=== PATIENT | male | born 1955 | race Caucasian/White ===

== ENCOUNTER 2018-07-24 15:00 | Emergency (ER) | payer BC, SELFPAY ==
[2018-07-24 15:01] VITALS: BP 158/102; PULSE 80; RESP 16; TEMP 36.6; O2SAT 97; BMI 25.2
--- NOTE | 2018-07-24 15:12 | CT_ITS ---
STUDY: CT ABDOMEN AND PELVIS WITHOUT CONTRAST REASON FOR EXAM: Male, 62 years old. Left upper quadrant pain RADIATION DOSAGE (If Supplied By Facility): CTDIvol = ( 6.31 ) mGy, DLP = ( 283.76 ) mGycm TECHNIQUE: Transaxial images were obtained from the dome of the diaphragm to the symphysis pubis without oral contrast, and without intravenous contrast. Sagittal and coronal images were reconstructed. Individualized dose optimization techniques were used for this CT. COMPARISON: None. FINDINGS: The visualized lung bases are unremarkable. The visualized portions of the heart are within normal limits. Normal liver. Normal gallbladder and extrahepatic biliary system. Normal spleen. Normal pancreas. Normal bilateral adrenal glands. Punctate nonobstructing nephrolith on the right. 1.5 cm left renal exophytic lesion measuring 29 Hounsfield units. Normal visualized stomach. Normal small intestine. Normal colon. The appendix is visualized and appears normal. Normal abdominal aorta. Normal inferior vena cava. Normal retroperitoneum. Normal urinary bladder. Bilateral fat-containing inguinal hernias. Slight anterior subluxation and bilateral pars defects at L5-S1. CT/Abdomen/Pelvis without Cont IMPRESSION: Punctate nonobstructing nephrolith on the right. Grade 1 spondylolisthesis and spondylolysis at L5-S1. Electronically Signed: Georges Saxena MD at 16:19 EST , Service support ,
--- NOTE | 2018-07-24 15:13 | EKG12_ITS ---
Test Reason : CP Blood Pressure : / mmHG Vent. Rate : 071 BPM Atrial Rate : 071 BPM P-R Int : 178 ms QRS Dur : 090 ms QT Int : 408 ms P-R-T Axes : 050 010 001 degrees QTc Int : 443 ms Normal sinus rhythm Normal ECG Confirmed by JOSEPH MCNAMARA, SIMONE ([id number]), editor sound WALTER WHITE ([id number]) on 07/27/2018 3:56:21 PM Referred By: CHELSY Confirmed By:SIMONE RUIZ MD
--- NOTE | 2018-07-24 15:14 | ED.VISSUMM ---
- ER Visit Summary Date of Service: 07/24/18 Chief Complaint: Abdominal pain History of Present Illness: The patient is a 62 M presenting for evaluation secondary to abdominal pain. Patient reports that he woke up this morning and started to notice that he was having some left-sided flank pain. He reports that he tried to stretch, run, workout and it really did not make the pain any better. Patient states the pain has since migrated to his left upper quadrant up underneath his rib line. States that it is not associated with any sort of shortness of breath, hemoptysis, worsening with deep breathing. Patient states that associated with some mild nausea but he denies any vomiting diarrhea change in color of his stools hematuria or dysuria. He is never had any prior similar episodes in the past. Patient denies any history of abdominal surgeries in the past. Denies any unintended weight loss or sweats. Review of systems otherwise negative. Physical Examination: Vital signs are within normal limits, patient is afebrile. General: Patient is well-nourished well-developed and in no acute distress. Head: Normocephalic, atraumatic Eyes: Pupils equal round and reactive bilaterally, extra occular motion intact bialterally ENT: Moist mucous membranes Neck: Supple, no lymphadenopathy, no JVD, no meningismus CVS: Heart regular rate and rhythm, no murmurs, rubs or gallops, radial pulses 2+ bilaterally, PT pulses 2+ bilaterally symmetric Resp: Respirations nondistressed, lung sounds clear bilaterally Abdomen: Soft, nontender, nondistended, no palpable masses, normal bowel sounds, patient complains of pain up underneath his rib line on the left but this is not reproducible to palpation Back: Nontender Extremities: Nontender, atraumatic, active full range of motion, no peripheral edema Skin: warm, no rashes, no petechia Neuro: Alert and oriented x 4, CN 2-12 intact, no lateralizing neurological defecits Psyc: Normal affect Test Results: EKG demonstrates sinus rhythm at [address] segments normal T waves no evidence of acute ischemia or arrhythmia. CBC, CMP lipase urinalysis and opponent all found to be unremarkable. CT abdomen and pelvis without IV contrast found to be negative. D-dimer was added on and was also found to be negative Emergency Department Course and Treatment: Patient presented for evaluation secondary to abdominal pain. Patient's workup including lab work as noted above is found to be negative. Patient was treated with Toradol and Zofran. Initial repeat evaluation the patient was still complaining of pain he was given a dose of Bentyl. Patient's d-dimer was found to be negative, CT was found to be negative. I did a repeat evaluation of the patient at 1717 and he still has no reproducible pain but is complaining of pain up in his flank. This would seem atypical for renal infarction, he has no evidence of an action or pneumonia, he is negative for PE, negative for kidney stone, I do not believe that further workup or observation are indicated. Patient asked if this potentially could be muscular and it potentially could be so the patient will be sent home with a prescription for a muscle relaxer. He is instructed to follow-up in 24-48 hours if he is not having improvement. Disposition: Discharge Impression: 1. Nonspecific abdominal pain This note was generated with [employer] dictation software. It may contain incorrect words, spelling, and punctuation that were not noted in review of the chart prior to signing ED Disposition - Plan for ED Patient: Disposition: Home or Assisted Living Chief Complaint: Abd Pain Diagnosis: Abdominal pain Instructions: ED Abdominal Pain Unkn Cause Prescriptions: Cyclobenzaprine [Flexeril] 10 mg PO TID PRN #20 tab PRN Reason: Muscle Spasm Referrals: Will Garces DO [Primary Care Provider] - 1-2 Days if not improving
[2018-07-24] MEDS: Ondansetron 4 MG/2 ML Vial IV (15:28)
[2018-07-24] MEDS: 0.9% Normal Saline 1,000 ML 125 ML IV (15:28)
[2018-07-24] MEDS: Ketorolac 30 MG/ML Syringe 15 MG IV (15:28)
[2018-07-24 15:29] LABS: Absolute Lymphocyte Count 2.08 X10^3/ul (0.83-4.51); Absolute Neutrophil Count 2.9 X10^3/uL (2.0-7.7); Basophil# 0.05 X10^3/uL; Basophil% 0.8 % (0-1); Eosinophil# 0.25 X10^3/uL; Eosinophils% 4.1 % (0-5); Hemoglobin 14.9 g/dl (13.0-16.5); Lymphocyte # 2.08 X10^3/ul (4.0); Lymphocyte % 34.3 % (19-41); Mean Corp Hgb Conc 33.9 g/gl (32-36); Mean Corpuscular Hgb 30.3 pg (27.0-32.0); Mean Corpuscular Volume 89.6 fL (80-94); Mean Platelet Vol. 9.2 fl (6.2-12.0); Monocyte# 0.76 X10^3/uL; Monocyte% 12.5 % (0-10); Neutrophil # 2.91 X10^3/uL (2.7-7.7); Platelet Count 258 K/mm3 (150-450); RBC Distribution Width CV 13.2 % (11.6-14.6); RBC Distribution Width SD 43.1 fl (35.1-43.9); Red Blood Count 4.91 M/mm3 (4.6-6.2); White Blood Count 6.1 K/mm3 (4.4-11.0)
[2018-07-24 15:31] LABS: POSITIVE COUNT NO; POSITIVE DIFFERENTIAL NO; POSITIVE MORPHOLOGY NO
[2018-07-24 15:51] LABS: Bacteria 0 SEEN /hpf (None Seen); Mucous, Urine 0 SEEN /hpf (<or=2+); Red Blood Cells-Urine 0 SEEN /hpf (0-5); Squamous Epithelial Cells - UA 0 SEEN /hpf (0-5); White Blood Cells 0 SEEN /hpf (0-5)
[2018-07-24 15:52] LABS: Glucose, Dipstick Normal (Normal); Ketone-Dipstick Negative (Negative); Leukocyte Esterase-Dipstick Negative /ul (Negative); Nitrite-Dipstick Negative (Negative); Occult Blood-Urine Negative /ul (Negative); Protein-Dipstick Negative (Negative); Specific Gravity, Urine 1.015 (1.002-1.030); Urine Bilirubin Dipstick Negative (Negative); Urine Urobilinogen Normal (Normal)
[2018-07-24 15:55] LABS: Color, Urine Yellow (Yellow); Urine Clarity Clear (Clear)
[2018-07-24 15:55] LABS: ALB/GLOB Ratio 0.9 RATIO (0.9-2.4); AST(SGOT) 21 U/L (15-37); Alanine Aminotransfer ALT/SGPT 38 U/L (16-61); Albumin, Serum 3.6 g/dL (3.2-5.0); Alkaline Phosphatase 156 U/L (45-117); Anion Gap 8 (5-15); BUN 21 mg/dL (7-18); BUN/Creat Ratio 25.1 RATIO (10-20); Chloride 106 mmol/L (98-107); Creatinine, Serum 0.84 mg/dL (0.70-1.30); EST Glomerular Filtration Rate 98 mL/min (>60); Est Glom Filt Rate - Afr Amer 119 mL/min (>60); Estimated Creatinine Clearance 81.23 ml/min; Globulin 3.8 g/dL (2.2-4.2); Glucose 107 mg/dL (74-106); Lipase 141 U/L (73-393); Potassium 3.9 mmol/L (3.5-5.1); Protein, Total 7.4 g/dL (6.4-8.2); Sodium Level 141 mmol/L (136-145)
[2018-07-24] MEDS: Dicyclomine 10 MG Capsule 20 MG PO (16:28)
[2018-07-24 17:00] LABS: D-Dimer Quantitative (DVT/PE) 0.34 FEU/ug/m (0.27-0.49)
[2018-07-24 17:37] VITALS: BP 145/95; PULSE 70; RESP 16; O2SAT 95
--- NOTE | 2018-07-24 17:39 | ED.RN ---
REVIEWED D/C INSTRUCTIONS, FOLLOW UP CARE, PRESCRIPTION, AND S/S THAT WOULD WARRANT A RETURN TO THE ED WITH PT. PT VERBALIZED AN UNDERSTANDING AND DENIES FURTHER QUESTIONS FOR THIS RN. PT SKIN P/W/D, RESP EVEN AND UNLABORED, PT A&O X 3, NO DISTRESS NOTED. PT AMBULATED OUT OF ED, GAIT STEADY.
== END 2018-07-24 17:40 | disposition home or self-care (01) ==
PROVIDERS: Emergency Provider Emergency Medicine; Family Provider Preventive Medicine Occupational Medicine; PCP Preventive Medicine Occupational Medicine
DX: R10.9 Unspecified abdominal pain (principal); R11.0 Nausea; I10 Essential (primary) hypertension; E78.00 Pure hypercholesterolemia, unspecified; Z87.891 Personal history of nicotine dependence
CPT/HCPCS: 74176; 80053; 81001; 83690; 84484; 85025; 85379; 93005; 96361; 96374; 96375; 99283; J7030; A4216; J2405